=== PATIENT | female | born 1945 | race Hispanic/Latino ===

== ENCOUNTER 2016-12-18 12:57 | Outpatient (CLI) | payer MEDICARE ==
--- NOTE | 2016-12-19 08:29 | Mammography Report ---
BONE DENSITY STUDY: DEFINITIONS: BMD = Bone Mineral Density T-score = BMD related to mean peak bone mass of young adult (mean expressed in Standard Deviation) Z-score = Age matched BMD expressed in SD World Health Organization (WHO) Diagnostic Criteria Normal T-score > -1 SD Osteopenia T-score between -1 and -2.4 SD Osteoporosis T-score -2.5 SD or below FINDINGS: The weighted average BMD of lumbar spine L1-L4 is 0.964 with a T-score of -1.0. The weighted average BMD of hip is 0.743 with a T-score of -1.6. IMPRESSION: The patient's T-score is diagnostic for osteopenia and average relative risk for fracture. NOTE: BMD is not the only risk factor for fracture; also consider factors such as the patient's age, risk of falling, previous osteoporotic fracture, family history of osteoporotic fractures, current smoker, and low body weight. Maloney's triangle is a region of interest in femur, predominantly of trabecular bone. It is not a true anatomic site, and ISCD does not recommend its use clinically.
== END 2016-12-18 12:58 | disposition home or self-care (01) ==
LOC: MAMMO 12:57
PROVIDERS: ATTEND Internal Medicine
DX: M81.0 Age-related osteoporosis without current pathological fracture (principal); M85.80 Other specified disorders of bone density and structure, unspecified site
CPT/HCPCS: 77080

== ENCOUNTER 2021-12-08 13:13 | Outpatient (CLI) | payer MEDICARE ==
[2021-12-08 13:52] LABS: Hematocrit 35.4 % (30.3-42.9); Hemoglobin 12.5 gm/dl (10.1-14.3); Mean Corpuscular HGB Conc 35 % (30-34); Mean Corpuscular Volume 89 fl (79-97); Platelet Count 313 K/mm3 (140-440); Red Cell Distribution Width 13.9 % (13.2-15.2)
[2021-12-08 14:04] LABS: INR 0.92 (0.87-1.13)
[2021-12-08 14:18] LABS: Alanine Aminotransferase 12 units/L (7-56); Albumin 4.1 g/dL (3.9-5); Blood Urea Nitrogen 20 mg/dL (7-17); Calcium 10.5 mg/dL (8.4-10.2); Hemolysis Index 5
[2021-12-08 14:28] LABS: BUN/Creatinine Ratio 29
--- NOTE | 2021-12-09 17:32 | Electrocardiograph Report ---
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
== END 2021-12-08 13:14 | disposition home or self-care (01) ==
LOC: LAB 13:13 → CARD 13:13
PROVIDERS: ATTEND Internal Medicine
DX: Z00.00 Encounter for general adult medical examination without abnormal findings (principal); I10 Essential (primary) hypertension; R53.83 Other fatigue
CPT/HCPCS: 36415; 80053; 85027; 85610; 85730; 93005; 93010

== ENCOUNTER 2022-03-20 08:44 | Observation (INO) | payer MEDICARE ==
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
[~2022-03-20 08:44] MED LIST: ACETAMINOPHEN 325 MG TAB PO SCH; MIDAZOLAM 2 MG/2 ML INJ IV SCH; PREGABALIN 50 MG CAP PO SCH; ceFAZolin/STERILE WATER 2 GM/20 ML SYRINGE IV NR; fentaNYL 100 MCG/2 ML INJ IV PRN
[2022-03-20] MEDS: CELECOXIB 200 MG CAP PO SCH (09:39)
[2022-03-20] MEDS: LACTATED RINGERS 1,000 ML IV SCH ×2 (09:52→23:44)
[2022-03-20] MEDS ORDERED: BUPIVACAINE-EPINEPHRINE/PF 0.25%-1:200,000 (30 ML) VIAL INFILTRATI ONE (10:10)
[2022-03-20] MEDS ORDERED: dexAMETHasone 4 MG/ML VIAL ONE (10:11)
[2022-03-20] MEDS ORDERED: ONDANSETRON 4 MG/2 ML INJ IV PRN ×2 (10:14→16:19)
[2022-03-20] MEDS ORDERED: HYDROmorphone 0.5 MG/0.5 ML INJ IV PRN ×2 (10:14)
--- NOTE | 2022-03-20 10:14 | Anesthesia Day of Surgery ---
Anesthesia Day of Surgery - Day of Surgery Patient Examined: Yes Patient H&P Reviewed: Yes Patient is NPO: Yes
[2022-03-20] MEDS ORDERED: TRANEXAMIC ACID 1,000 MG/10 ML ONE (11:48)
[2022-03-20] MEDS ORDERED: BUPIVACAINE/PF (0.5%) 5 MG/1 ML 30 ML VIAL INFILTRATI ONE ×2 (11:48→14:08)
[2022-03-20] MEDS ORDERED: methylPREDNISolone ACETATE 40 MG/1 ML INJ ONE (11:48)
[2022-03-20] MEDS ORDERED: SODIUM CHLORIDE 0.9% 100 ML ONE (11:49)
[2022-03-20] MEDS ORDERED: MORPHINE 10 MG/1 ML INJ ONE (11:49)
[2022-03-20] MEDS ORDERED: fentaNYL 100 MCG/2 ML INJ ONE ×2 (11:52→12:58)
[2022-03-20] MEDS ORDERED: ONDANSETRON 4 MG/2 ML INJ ONE (11:52)
[2022-03-20] MEDS ORDERED: LIDOCAINE MPF (2%) 20 MG/1 ML VIAL 5 ML ONE (11:52)
[2022-03-20] MEDS ORDERED: propofoL 200 MG/20 ML VIAL IV ONE (11:53)
[2022-03-20] MEDS ORDERED: ePHEDrine SULFATE 50 MG/1 ML INJ ONE (12:42)
[2022-03-20] MEDS ORDERED: MORPHINE 10 MG/1 ML INJ IV ONE (14:07)
[2022-03-20] MEDS ORDERED: methylPREDNISolone ACETATE 40 MG/1 ML INJ INTRA-ARTI ONE (14:08)
[2022-03-20] MEDS ORDERED: SODIUM CHLORIDE 0.9% 50 ML IVPB IV ONE (14:09)
--- NOTE | 2022-03-20 15:28 | Post Operative Note ---
Date of procedure: 03/20/22 Pre-op diagnosis: left knee osteoarthritis Post-op diagnosis: same Findings: severe left knee osteoarthritis Procedure: left total knee replacement Anesthesia: GETA Surgeon: KEM MARQUEZ Ring Facer: YUKI DREW Estimated blood loss: other (250cc) Pathology: none Condition: stable Disposition: PACU
--- NOTE | 2022-03-20 15:30 | Discharge Summary ---
Short Stay Discharge Plan Activity: advance as tolerated, no driving until cleared by PCP Weight Bearing Status: Full Weight Bearing Diet: regular Wound: keep clean and dry, per your surgeon's advice Special Instructions: smoking cessation, no heavy lifting, physical therapy Durable Medical Equipment Needed Upon Discharge: Walker-Rolling Additional Instructions: follow printed discharge instructions given by surgeon in recovery room Follow up with: NATTY COURTNEY MD [Primary Care Provider] - 7 Days KEM MARQUEZ DO [Staff Physician] - 14 Days
[2022-03-20] MEDS ORDERED: dexAMETHasone 20 MG/5 ML VIAL ONE (15:53)
--- NOTE | 2022-03-20 16:08 | Operative Report ---
Operative Report Operative Report: Patient Name: Sonja Leach Date of : 1945 Date of Surgery: 03/20/22 Pre-Operative Diagnosis: Left knee osteoarthritis Post-Operative Diagnosis: Left knee osteoarthritis Procedure: Left total knee replacement Surgeon: Oli Medina DO Assistants: Veena Milton PA-C EBL: 250cc Complications: None Anesthesia: GETA, plus regional nerve block for post-operative pain control Implants: Medacta GMK Sphere size 2+ femur, size 2 tibia, 11 mm CS polyethylene insert, size 2 patella Tourniquet Time: 8 minutes at 250 mmHg Indications: This is a 76-year-old female who presented with worsening left knee pain over the last 2-3 years. Pain is worse with weight bearing. Patient had difficulty ambulating, using stairs because of the pain. Patient had tried nonoperative management including physical therapy/home exercises, multiple COLLADO and steroid knee joint injections, anti-inflammatory medications, activity modifications, assistive devices without any lasting pain relief. Patient elected to undergo left total knee replacement. Patient was met in the preoperative holding area where the risk, benefits, alternatives to surgery were explained to the patient in detail. Risks include but are not limited to infection, bleeding, neurovascular injury, soft tissue injury, infection, need for further surgery, need for revision surgery, fracture, dislocation, pain, stiffness, loss of limb, loss of life. Patient also has recent history of a left LE vein procedure with resultant chronic skin changes and ecchymosis. I explained this puts the patient at risk for wound healing complications. We will use a curvalinear incision to avoid the areas of chornic skin ecchymosis instead of a standard midline incision. Pre-operatively we decided to use a negative pressure wound therapy dressing to help with post-op wound healing. Furthermore, we will use nylon sutures to close the skin layer. Informed consent was obtained after all questions were thoroughly answered. Procedure: Patient was placed supine on the operating room table and all bony prominences were well-padded. The left lower extremity was prepped and draped in the usual sterile fashion. A timeout was performed by all members of the operating room team. An esmarch bandage was used to wrap the left lower extremity and the tourniquet was inflated to 250 mmHg. A curvalinear incision was made over the left knee, curving medially around the patella. Sharp dissection was used to go through the skin and the subcutaneous fat. Medial and lateral fasciocutaneous flaps were then elevated. Using electrocautery a medial parapatellar arthrotomy was then performed. Upon inspection of the knee joint there was severe osteoarthritis in the medial, lateral and patellofemoral compartments. There were multiple large osteophytes around the knee joint. An anteromedial release was performed on the proximal tibia anterior to the midsagittal plane. There was bleeding noted so we took downt he tourniquet at 8 minutes as it was resulting in a venous tourniquet causing bleeding. Once the tourniquet was let down the bleeding stopped. The ACL and the PCL as well as the meniscal remnants were then removed. An opening reamer was then used to open up the distal femoral canal. An intramedullary anai was placed approximately 10 cm up the femoral canal. The distal cutting jig and block were then secured to the distal femur. Using an oscillating saw the distal femoral resection was then performed. Using calipers we measured the thickness of the cut distal medial and lateral femoral condyles. Taking into account cartilage loss and the saw kerf we made sure that the amount of resection equaled the thickness of our implant. The distal cutting block was removed. A femoral sizer was used to measure the size of the femoral implant. Once we had the appropriate size we secured the 4-in-1 cutting block to the distal femur using 2 bone screws. We then made our medial and lateral posterior femoral condylar cuts. Again we used a caliper to measure the thickness of our cuts while taking into account cartilage loss and saw kerf, thickness equaled that of the implant. Next, using the oscillating saw to make the anterior femoral cut as well as the anterior and posterior chamfer cuts. Next we turned our attention to the proximal tibia. We then secured the extra medullary tibial cutting jig to the leg. We then matched the [place] slope of the proximal tibia with the guide. We also made sure that the tibial cutting guide was parallel to the articular surface taking into account any cartilage wear and bone loss. Using the 8 mm stylus at the base of the tibial spines on the medial and lateral side we then adjusted the tibial guide to the proper resection depth. We secured the proximal tibial cutting jig to the proximal tibial bone using 3 pins. An oscillating saw was then used to make our proximal tibial resection. Next using a laminar network technology instructor the knee joint was opened up in 90 degrees of flexion. Using a 0.5 inch curved osteotome the posterior osteophytes were removed from both the posterior medial distal femur as well as posterior lateral distal femur. The patient's bone was noted to be soft and osteoporotic. The meniscal remnants were then removed. Next the tibia was anteriorly subluxed and a size 2 tibial guide was then placed in the appropriate amount of rotation parallel to the rotational axis of the tibia of the [place] knee. Tibial guide was secured to the proximal tibia using 2 pins. The tibia was then drilled and punched in the proper rotation. Trial components were then placed on the tibia as well as the femur. The knee was taken through the full range of motion and found to be stable. The knee was able to be flexed to 135 degrees and extension to 0 degrees. There is no varus or valgus laxity with the knee in full extension. The knee was flexed to 90 degrees and again varus and valgus stress was applied. There was no gapping of the medial side with the knee 90 degrees of flexion, the lateral side had approximately 2 mm of gapping which was consistent with a kinematics of the [place] knee joint. The patella was also tracking well within the trochlear groove with no lateral tilt or subluxation. The patella was then everted and cut down to 15 mm using the patellar cutting guide. 3 holes were drilled into the patella and a trial button was placed. Again the knee was taken through the full range of motion with good patella tracking. At this point we were satisfied with the overall range of motion the stability of the patella tracking as well as the knee. All trials were then removed. The real components were opened. The knee was copiously irrigated with antibiotic saline and then dried. A local anesthetic cocktail was then injected into the posterior capsule as well as the surrounding deep tissues of the knee joint. 2 bags of cement were mixed. Once the cement was in a doughy state the real components were cemented into place starting with the tibia followed by the femur and then the patella. All excess cement was then removed using curettes from around the implants. Once the cement had completely hardened the knee was irrigated again with diluted Betadine mixed with normal saline. The knee was then copiously irrigated with normal saline using pulsatile lavage. The tourniquet was let down. There was no active bleeding. Electrocautery was used throughout the case to maintain meticulous hemostasis. The arthrotomy was then closed in flexion in a watertight fashion using #1 Ethibond suture in an interrupted fashion. The arthrotomy was then reinforced with a #1 stratafix PDS suture. The deep fascial layer was closed with 0 Vicryl. The subcutaneous layers were closed with 2-0 Vicryl and the subcuticular layer was closed with 3-0 nylon in a horizontal mattress fashion. The wound was then covered with a BRANDIE dress (negative pressure owund therapy). The operative lower extremity was wrapped in an Kw[place] wrap from the foot all the way up to the proximal thigh. The sponge and needle count were correct in the case. The patient was then awakened by the anesthesia team and taken to the recovery room in stable condition. The patient's total knee arthroplasty was performed using a calipered kinematically aligned technique.
[2022-03-20] MEDS ORDERED: MORPHINE 4 MG/1 ML INJ IV PRN (16:19)
[2022-03-20] MEDS ORDERED: traMADol 50 MG TAB PO PRN (16:19)
[2022-03-20] MEDS ORDERED: oxyCODONE /ACETAMINOPHEN 5-325MG TAB PO PRN (16:19)
[2022-03-20] MEDS ORDERED: SODIUM CHLORIDE 0.9% 1000 ML 1,000 ML IV SCH (16:30)
[2022-03-20] MEDS ORDERED: ceFAZolin/NS 1 GM/50 ML 1 GM/50 ML BAG IV SCH (17:00)
--- NOTE | 2022-03-20 17:06 | XRay Report ---
Left knee 2 views INDICATION: Knee replacement FINDINGS: Left total knee arthroplasty is satisfactory in position and alignment. No acute fractures seen. Signer Name: Adriel Mata MD Signed: 03/20/2022 5:01 PM Workstation Name: [employer]
--- NOTE | 2022-03-20 17:09 | Post Anesthesia Evaluation ---
- Post Anesthesia Evaluation Patient Participated: Yes Airway Patent: Yes Stable Respiratory Function: Yes Nausea/Vomiting: No Temp > 96.8F: Yes Pain Manageable: Yes Adequeate Hydration: Yes Anesthesia Complications: No Block Receding Appropriately: Yes Patient on Ventilator: No
[2022-03-20] MEDS: KETOROLAC 30 MG/1 ML INJ IV SCH (20:13)
[2022-03-20] MEDS: ceFAZolin/NS 1 GM/50 ML 1 GM/50 ML BAG IV SCH (22:26)
[2022-03-20] MEDS: DOCUSATE SODIUM 100 MG CAP PO SCH (22:29)
[2022-03-20] MEDS: ACETAMINOPHEN 325 MG TAB PO SCH (22:32)
[2022-03-21] MEDS: KETOROLAC 30 MG/1 ML INJ IV SCH (01:27)
[2022-03-21] MEDS: ceFAZolin/NS 1 GM/50 ML 1 GM/50 ML BAG IV SCH (06:26)
[2022-03-21] MEDS: ACETAMINOPHEN 325 MG TAB PO SCH ×3 (06:33→17:00)
[2022-03-21 07:07] LABS: Hematocrit 32.5 % (30.3-42.9); Hemoglobin 10.7 gm/dl (10.1-14.3)
[2022-03-21 07:11] LABS: Calcium 8.8 mg/dL (8.4-10.2)
[2022-03-21] MEDS ORDERED: CELECOXIB 200 MG CAP PO SCH (10:00)
[2022-03-21] MEDS: ASPIRIN 81 MG TAB CHEW PO SCH ×2 (10:32→10:34)
[2022-03-21] MEDS: CELECOXIB 200 MG CAP PO SCH (10:32)
[2022-03-21] MEDS: DOCUSATE SODIUM 100 MG CAP PO SCH (10:33)
--- NOTE | 2022-03-21 12:27 | Progress Note ---
Assessment and Plan 76-year-old female status post left total knee replacement postop day 1 -Overall patient is doing well. Pending physical therapy evaluation. -Continue current pain management regimen -Hospitalist consult placed for postoperative medical management -PT evaluation -Weightbearing as tolerated on left lower extremity -Acute blood loss anemia -expected after major orthopedic surgery. Hemoglobin is 10.7 today. Vitals are stable, patient is asymptomatic -continue to monitor -Aspirin 81 mg p.o. twice daily to begin today for DVT prophylaxis -Disposition: Plan for discharge to home pending PT eval today. Subjective Date of service: 03/21/22 Principal diagnosis: left total knee replacement Interval history: Patient seen and examined at bedside. Patient is doing well overall. Patient states her pain is controlled with the pain medication. Patient is tolerating oral diet. Patient has not gotten out of bed yet with physical therapy. Patien t denies any fevers or chills. No other complaints at this time. Objective Vital signs: Vital Signs - 12hr 03/21/22 03/21/22 03:38 10:07 Temperature 98.0 F Pulse Rate 85 Respiratory 16 Rate Blood Pressure 136/65 O2 Sat by Pulse 100 100 Oximetry Narrative Exam: NAD, eating lunch in bed. awake and alert Breathing comfortably LLE: Dressing is clean, dry, intact. Ankle plantarflexion, dorsiflexion, EHL motor function intact. L4-S1 sensation to light touch intact. Cap refill brisk. Incision: clean and dry Weight bearing status: full - Allied Health Allied health notes reviewed: nursing - Labs CBC & BMP: 03/21/22 06:09 03/21/22 06:09 Labs: Abnormal lab results 03/21/22 Range/Units 06:09 BUN 19 H (7-17) mg/dL Glucose 163 H (65-100) mg/dL
--- NOTE | 2022-03-21 12:33 | Discharge Summary ---
Providers - Providers Date of Admission: 03/20/22 16:19 Date of discharge: 03/21/22 Attending physician: KEM MARQUEZ DO 03/20/22 15:25 Physical Therapy Evaluation and Treat [CONS] Routine Comment: patient will be in recovery room Reason For Exam: s/p left total knee replacement Mode of Transport?: Wheelchair Weight bearing status?: Full wt bearing Assistive devices?: Yes: rolling walker If so list: Walker 03/20/22 16:19 Consult to Case Management [CONS] Routine Services Needed at Discharge: Physical Therapy Notified:: CM 03/20/22 16:43 Consult to Physician [CONS] Routine Comment: Consulting Provider: ELLIOTT MARIE Physician Instructions: Reason For Exam: post-op medical management Primary care physician: NATTY COURTNEY Hospitalization Reason for admission: acute care following left total knee replacement Condition: Stable Procedures: left total knee replacement Hospital course: Patient admitted for acute care following left total knee replacement. Patient tolerated procedure well. Patient tolerated oral diet. Patient started on aspirin for DVT prophylaxis on postop day 1. Patient had a PT evaluation postop day 1. Patient was cleared for safe discharge to home. Pain was controlled oral and IV pain medication. Patient had expected acute blood loss anemia from surgery, vital stable, patient asymptomatic. Hemoglobin was 10.7 on postop day 1, monitored. Disposition: 01 HOME / SELF CARE / HOMELESS Final Discharge Diagnosis (Prints w/discharge instructions): left knee osteo arthritis Core Measure Documentation - Palliative Care Palliative Care/ Comfort Measures: Not Applicable - Core Measures Any of the following diagnoses?: none Exam - Constitutional Vitals: Temp Pulse Resp BP Pulse Ox 98.0 F 85 16 136/65 100 03/21/22 03:38 03/21/22 03:38 03/21/22 03:38 03/21/22 03:38 03/21/22 10:07 General appearance: Present: no acute distress - EENT Eyes: Present: EOM intact ENT: hearing intact - Neck Neck: Present: supple - Respiratory Respiratory effort: normal - Cardiovascular Heart Sounds: Present: S1 & S2 - Extremities Extremities: pulses intact Peripheral Pulses: within normal limits - Abdominal General gastrointestinal: Present: soft, non-tender - Musculoskeletal Musculoskeletal: other (LLE: Dressings C/D/I. Ankle plantarflexion, dorsifl exion, EHL motor function intact. L4-S1 sensation to light touch intact. Cap refill brisk. (+) DP Pulse) - Neurologic Neurologic: moves all extremities - Allied Health Allied health notes reviewed: nursing Plan Activity: advance as tolerated, no driving until cleared by PCP Weight Bearing Status: Full Weight Bearing Diet: regular Wound: keep clean and dry, per your surgeon's advice Special Instructions: physical therapy Durable Medical Equipment Needed Upon Discharge: Walker-Rolling Follow up with: KEM MARQUEZ DO [Staff Physician] - 14 Days NATTY COURTNEY MD [Primary Care Provider] - 7 Days
[2022-03-21 18:31] VITALS: BP 156/57
== END 2022-03-21 17:00 | disposition home or self-care (01) ==
LOC: OR 08:44 → 3A 16:19
PROVIDERS: ADMIT Orthopaedic Surgery; ATTEND Orthopaedic Surgery
DX: M17.12 Unilateral primary osteoarthritis, left knee (principal); Z20.822 Contact with and (suspected) exposure to COVID-19; Z79.82 Long term (current) use of aspirin; Z79.899 Other long term (current) drug therapy; Z98.890 Other specified postprocedural states
CPT/HCPCS: 27447; 36415; 64447; 73560; 80048; 85014; 85018; 86850; 86900; 86901; 88304; 88311; 94760; 96365; 96366; 96375; 96376; 97110; 97162; C1713; C1776; G0378; J0690; J0696; J1030; J1100; J1885; J2250; J2270; J2405; J2704; J3010; J3490; J7120; U0003; 64450; 88309